=== PATIENT | male | born 1960 | race Caucasian/White ===

== ENCOUNTER → 2018-09-21 | Outpatient (CLI) | payer BC ==
[~2018-09-21] VITALS: Ht 180.3 cm; Wt 81.6 kg
[2018-09-21 12:16] LABS: Basophils # (auto) 0.1 uL; Basophils % (auto) 1.6 % (0.0-2.0); Eosinophils # (auto) 0.2 uL; Eosinophils % (auto) 3.9 % (0.0-7.0); Hematocrit 45.3 % (41.0-53.0); Hemoglobin 15.6 g/dL (13.5-17.5); Lymphocytes # (auto) 1.3 uL; Mean Corpuscular Hemoglobin 29.3 pg (28.0-32.0); Mean Corpuscular Hgb Conc. 34.4 g/dL (32.0-36.0); Mean Corpuscular Volume 85.2 fL (80.0-100.0); Monocytes # (auto) 0.5 uL; Monocytes % (auto) 8.2 % (0.0-12.0); Neutrophils # (auto) 3.5 uL; Neutrophils % (auto) 63.3 % (37.0-80.0); Nucleated Red Blood Cells % 0.2 %; Platelet Count (auto) 195 10^3/uL (140-450); Red Blood Cells 5.32 10^6/uL (4.5-5.90); Red Cell Distribution Width 13.2 % (11.8-14.3); Urine Blood Negative /uL (Negative); Urine Specific Gravity 1.026 (1.001-1.035); White Blood Cell 5.6 10^3/uL (4.4-10.8)
[2018-09-21 12:26] LABS: Albumin 3.7 g/dL (3.4-5.0); Calcium 8.5 mg/dL (8.5-10.1); Potassium 3.9 mmol/L (3.5-5.1)
[2018-09-21 12:32] LABS: BUN/Creatinine Ratio 16.7; Bilirubin, Total 0.7 mg/dL (0.2-1.0); Total Protein 7.2 g/dL (6.4-8.2)
[2018-09-21 12:34] LABS: Free T4 (Free Thyroxine) 1.34 ng/dL (0.89-1.76)
[2018-09-21 12:35] LABS: Prostate Specific Antigen 1.14 ng/mL (0.0-4.0)
== END | disposition home or self-care (01) ==
LOC: Rad HDHVI 08:07
PROVIDERS: ATTEND Internal Medicine Cardiovascular Disease
DX: I20.9 Angina pectoris, unspecified (principal); E03.9 Hypothyroidism, unspecified; E11.9 Type 2 diabetes mellitus without complications; E55.9 Vitamin D deficiency, unspecified; E29.1 Testicular hypofunction; N39.0 Urinary tract infection, site not specified; C61 Malignant neoplasm of prostate
CPT/HCPCS: 36415; 78452; 80053; 80061; 81003; 82306; 82607; 83036; 84153; 84403; 84439; 84443; 85025; 93017; 93306; 96374; A9500

== ENCOUNTER → 2018-11-01 | Outpatient (CLI) | payer BC ==
[~2018-11-01] MED LIST: HEPARIN IN NS 1000Units/500mL 1,500 ML ONE; LIDOCAINE 2%HCL (LOCAL ANESTH.) INJ 20ML MDV ONE
[2018-11-01 12:57] VITALS: BP 113/71
[2018-11-01 13:14] VITALS: BP 117/77
--- NOTE | 2018-11-01 13:14 | NUR ---
CHF PRE-OP FOR LEFT HEART CATH FOR 11/03/18. Pre-Op Discharge Summary: See e-MAR for any medications given for this visit. Pre-op orders received and carried out per MD of EKG, LABS and chest xrays. Patient given a copy of EKG with instructions to go to [facility] out patient for further follow up care.
[2018-11-01 15:49] LABS: Basophils # (auto) 0.1 uL; Basophils % (auto) 1.1 % (0.0-2.0); Eosinophils # (auto) 0.2 uL; Eosinophils % (auto) 2.5 % (0.0-7.0); Hematocrit 45.4 % (41.0-53.0); Hemoglobin 15.4 g/dL (13.5-17.5); Lymphocytes # (auto) 1.8 uL; Lymphocytes % (auto) 27.3 % (10.0-50.0); Mean Corpuscular Hgb Conc. 33.8 g/dL (32.0-36.0); Mean Corpuscular Volume 85.7 fL (80.0-100.0); Monocytes # (auto) 0.7 uL; Monocytes % (auto) 10.6 % (0.0-12.0); Neutrophils # (auto) 3.8 uL; Neutrophils % (auto) 58.5 % (37.0-80.0); Nucleated Red Blood Cells % 0.6 %; Platelet Count (auto) 218 10^3/uL (140-450); Red Blood Cells 5.29 10^6/uL (4.5-5.90); Red Cell Distribution Width 13.5 % (11.8-14.3); White Blood Cell 6.5 10^3/uL (4.4-10.8)
[2018-11-01 16:02] LABS: INR 0.95 (0.9-1.15); Partial Thromboplastin Time 27.1 sec (23.78-33.04); Prothrombin Time 10.2 sec (9.27-12.13)
[2018-11-01 16:03] LABS: Calcium 8.5 mg/dL (8.5-10.1); Potassium 3.6 mmol/L (3.5-5.1)
[2018-11-01 16:05] LABS: BUN/Creatinine Ratio 18.5
== END | disposition home or self-care (01) ==
LOC: Rad HDHVI 12:31
PROVIDERS: ATTEND Internal Medicine Cardiovascular Disease
DX: Z01.818 Encounter for other preprocedural examination (principal); D64.9 Anemia, unspecified; R79.1 Abnormal coagulation profile; I10 Essential (primary) hypertension; I20.9 Angina pectoris, unspecified
CPT/HCPCS: 36415; 71046; 80048; 85025; 85610; 85730; 93005; G0463

== ENCOUNTER 2018-11-03 07:35 | Day surgery (SDC) | payer BC ==
[~2018-11-03] VITALS: Ht 180.3 cm; Wt 83.9 kg
[2018-11-03] MEDS ORDERED: LIDOCAINE 2%HCL (LOCAL ANESTH.) INJ 20ML MDV ONE (09:16)
[2018-11-03] MEDS ORDERED: IOHEXOL 350 MG/ML 100ML IJ ONE (09:29)
[2018-11-03] MEDS ORDERED: ANGIOMAX 250 MG VIAL IV ONE (09:38)
[2018-11-03] MEDS ORDERED: fentaNYL CITRATE 100 MCG/2 ML VL ONE (09:39)
[2018-11-03] MEDS ORDERED: MIDAZOLAM HCL 1MG/1ML-2 ML VIAL ONE (09:39)
[2018-11-03] MEDS ORDERED: SODIUM CHL 0.9% 0 ML ONE (09:39)
== END 2018-11-03 12:00 | disposition home or self-care (01) ==
LOC: CATH 07:35
PROVIDERS: ATTEND Internal Medicine Cardiovascular Disease
DX: R94.39 Abnormal result of other cardiovascular function study (principal); R00.1 Bradycardia, unspecified; E07.9 Disorder of thyroid, unspecified; I10 Essential (primary) hypertension; Z98.890 Other specified postprocedural states; Z79.82 Long term (current) use of aspirin; Z79.899 Other long term (current) drug therapy
CPT/HCPCS: 93458; A6257; C1760; C1894; J1644; J2250; J3010; J7030; Q9967; 99152

== ENCOUNTER → 2019-04-10 | Outpatient (CLI) | payer BC ==
[~2019-04-10] MED LIST changes: +AMLO5TAB15 PO; +ASPI-404 PO; -HEPARIN IN NS 1000Units/500mL 1,500 ML ONE; +HYDR-4296 PO; +HYDR25TA4 PO; +LEVO100T8 PO; -LIDOCAINE 2%HCL (LOCAL ANESTH.) INJ 20ML MDV ONE; +LOSA25TA38 PO; +OME20T PO
[2019-04-10 09:34] VITALS: BP 132/87
[2019-04-10 09:55] VITALS: BP 114/81
--- NOTE | 2019-04-10 09:55 | NUR ---
Pre-Op Discharge Summary: See e-MAR for any medications given for this visit. Pre-op orders received and carried out per MD of EKG, LABS and prescription for chest xrays. Patient given a copy of EKG with instructions to go to [facility] out patient for further follow up care.
[2019-04-10 11:34] LABS: Basophils # (auto) 0.1 uL; Basophils % (auto) 1.2 % (0.0-2.0); Eosinophils # (auto) 0.1 uL; Eosinophils % (auto) 2.5 % (0.0-7.0); Hematocrit 43.9 % (41.0-53.0); Hemoglobin 15.1 g/dL (13.5-17.5); Lymphocytes # (auto) 1.4 uL; Lymphocytes % (auto) 24.8 % (10.0-50.0); Mean Corpuscular Hgb Conc. 34.3 g/dL (32.0-36.0); Mean Corpuscular Volume 84.6 fL (80.0-100.0); Monocytes # (auto) 0.5 uL; Monocytes % (auto) 9.5 % (0.0-12.0); Neutrophils # (auto) 3.5 uL; Nucleated Red Blood Cells % 0.1 %; Platelet Count (auto) 185 10^3/uL (140-450); Red Cell Distribution Width 13.1 % (11.8-14.3); White Blood Cell 5.6 10^3/uL (4.4-10.8)
[2019-04-10 11:41] LABS: Potassium 3.7 mmol/L (3.5-5.1)
[2019-04-10 11:50] LABS: INR 1.01 (0.9-1.15); Partial Thromboplastin Time 27.3 sec (23.64-32.05)
[2019-04-10 11:51] LABS: BUN/Creatinine Ratio 12.8; Calcium 8.6 mg/dL (8.5-10.1)
== END | disposition home or self-care (01) ==
LOC: Rad HDHVI 09:11
PROVIDERS: ATTEND Internal Medicine Cardiovascular Disease
DX: Z01.818 Encounter for other preprocedural examination (principal); D64.9 Anemia, unspecified; R79.1 Abnormal coagulation profile; I49.5 Sick sinus syndrome; I10 Essential (primary) hypertension
CPT/HCPCS: 36415; 80048; 85025; 85610; 85730; 93005; G0463

== ENCOUNTER 2019-04-13 07:01 | Inpatient (IN) | payer BC ==
[~2019-04-13] VITALS: Ht 180.3 cm; Wt 86.3 kg
[~2019-04-13 07:01] MED LIST changes: -HYDR25TA4 PO
[2019-04-13] MEDS ORDERED: VANCOMYCIN HCL 1000 MG VL ONE (08:12)
[2019-04-13] MEDS ORDERED: fentaNYL CITRATE 100 MCG/2 ML VL ONE (08:12)
[2019-04-13] MEDS ORDERED: MIDAZOLAM HCL 1MG/1ML-2 ML VIAL ONE (08:13)
[2019-04-13] MEDS ORDERED: ceFAZolin 1GM/50ML 50 ML IV ONE (08:13)
[2019-04-13] MEDS ORDERED: VANCOMYCIN 1GM/250ML 250 ML IV ONE (08:13)
[2019-04-13] MEDS ORDERED: IOHEXOL 350 MG/ML 100ML IJ ONE (08:13)
[2019-04-13] MEDS ORDERED: LIDOCAINE 2%HCL (LOCAL ANESTH.) INJ 20ML MDV ONE (08:13)
[2019-04-13] MEDS ORDERED: ACETAMINOPHEN 325 MG TAB PO PRN (11:00)
[2019-04-13] MEDS ORDERED: NITROGLYCERIN 0.4 MG SL TAB SL PRN (11:00)
[2019-04-13] MEDS ORDERED: MORPHINE SULF INJ 2 MG/ML SYRINGE 1ML IV PRN (11:00)
[2019-04-13] MEDS ORDERED: HYDROcodone-ACET 5/325MG TAB PO PRN (11:00)
--- NOTE | 2019-04-13 11:33 | NUR ---
Telemetry admit from [facility] CLAUDIABAMBI GUTIERREZ admitted to Telemetry unit after SBAR received. Patient oriented to Rosa Peng, RN primary RN, unit, room, bed, and unit policies regarding patient care and visiting hours. Patient now on continuous telemetry monitoring, tele box #[id number] and telemetry reading on arrival to unit is SR 64. Patient weighed by bed scale and encouraged to call if they need something. All questions and concerns addressed, patient verbalized understanding.
[2019-04-13 13:00] VITALS: BP 126/91
[2019-04-13] MEDS ORDERED: HYDR25TA4 PO (15:02)
[2019-04-13 16:34] VITALS: BP 132/90
--- NOTE | 2019-04-13 19:37 | NUR ---
OPENING NOTES RECEIVED REPORT FROM DAY SHIFT NURSE, SCOTT. PT IS AWAKE, ALERT AND ORIENTATED X 4 WITH NO S/S OF DISTRESS, NOR NAUSEA, VOMITING. NO CHEST PAIN. LEFT UPPER CHEST INCISION DRESSING IS CLEAN, DRY, AND INTACT. FAMILY IS AT BEDSIDE. BED BRAKES LOCKED AND BED IS IN LOWEST POSITION. SIDE RAILS UP X2 AND CALL LIGHT IS WITH IN REACH. HOB IS 30 DEGREES. WILL MONITOR Q 1HR.
[2019-04-13] MEDS: VANCOMYCIN 1GM/250ML 250 ML IV SCH (21:43)
[2019-04-13 22:00] VITALS: BP 147/86
--- NOTE | 2019-04-14 01:20 | NUR ---
Received patient from Petr RAINEY. Patient is resting in bed, no S/S of distress, SOB, or pain. Sling is in place to left arm. Will continue to monitor.
--- NOTE | 2019-04-14 01:29 | NUR ---
CLOSING NOTES ENDORSED CARE TO [facility].
[2019-04-14 05:00] VITALS: BP 137/88
[2019-04-14] MEDS ORDERED: LEVOTHYROXINE SODIUM 100 MCG TAB PO SCH (07:00)
[2019-04-14 08:00] VITALS: BP 127/83
[2019-04-14] MEDS: VANCOMYCIN 1GM/250ML 250 ML IV SCH (09:52)
[2019-04-14] MEDS ORDERED: amLODIPine BESYLATE 5 MG TAB PO SCH (10:00)
[2019-04-14] MEDS ORDERED: hydrALAZINE HCL 25 MG TAB PO SCH (10:00)
[2019-04-14] MEDS ORDERED: PANTOPRAZOLE 40 MG TAB PO SCH (10:00)
[2019-04-14] MEDS ORDERED: LOSARTAN POTASSIUM 25 MG TAB PO SCH (10:00)
[2019-04-14 13:58] VITALS: BP 129/83
[2019-04-14 15:17] VITALS: BP 129/83
--- NOTE | 2019-04-14 16:40 | NUR ---
DISCHARGE INSTRUCTIONS PROVIDED TO PT. PT VERBALIZED UNDERSTANDING FOR FOLLOW UP APPOINTMENT WITH [facility] AND CONTINUATION OF HOME MEDICATIONS. EDUCATIONAL MATERIAL PROVIDED, QUESTIONS AND CONCERNS ADDRESSED. IV CATHETER DC'D CATHETER INTACT NO PHLEBITIS, TELE BOX REMOVED AND RETURNED TO MONITOR. PT SAFELY ESCORTED OUT OF UNIT.
== END 2019-04-14 16:35 | disposition home or self-care (01) | DRG 244 ==
LOC: CATH 07:01 → TELE-WESTW 11:35
PROVIDERS: ADMIT Internal Medicine Cardiovascular Disease; ATTEND Internal Medicine Cardiovascular Disease
PROC: 0JH606Z Insertion of Pacemaker, Dual Chamber into Chest Subcutaneous Tissue and Fascia, Open Approach (ICD-10-PCS; principal; 2019-04-13)
PROC: 02HK3JZ Insertion of Pacemaker Lead into Right Ventricle, Percutaneous Approach (ICD-10-PCS; 2019-04-13)
PROC: 02H63JZ Insertion of Pacemaker Lead into Right Atrium, Percutaneous Approach (ICD-10-PCS; 2019-04-13)
DX: I49.5 Sick sinus syndrome (principal); I25.10 Atherosclerotic heart disease of native coronary artery without angina pectoris; I10 Essential (primary) hypertension; E78.5 Hyperlipidemia, unspecified; N40.0 Benign prostatic hyperplasia without lower urinary tract symptoms; R55 Syncope and collapse
CPT/HCPCS: 71045; 93005; 99152; 99153; C1785; G0378; J0690; J2250

== ENCOUNTER → 2020-05-06 | Outpatient (CLI) | payer BC ==
[~2020-05-06] MED LIST changes: -ASPI-404 PO; +ASPI-543 PO; -HYDR-4296 PO; +HYDR25TA4 PO; -LOSA25TA38 PO
[2020-05-06 12:11] LABS: Urine Blood Negative /uL (Negative); Urine Specific Gravity 1.023 (1.001-1.035)
[2020-05-06 12:12] LABS: Basophils # (auto) 0.1 10 ^3/uL (0-0.2); Basophils % (auto) 1.2 % (0.0-2.0); Eosinophils # (auto) 0.1 10 ^3/uL (0-0.8); Eosinophils % (auto) 2.3 % (0.0-7.0); Hematocrit 42.9 % (41.0-53.0); Hemoglobin 14.9 g/dL (13.5-17.5); Lymphocytes # (auto) 1.3 10 ^3/uL (0.4-5.4); Lymphocytes % (auto) 24.6 % (10.0-50.0); Mean Corpuscular Hemoglobin 29.8 pg (28.0-32.0); Mean Corpuscular Hgb Conc. 34.7 g/dL (32.0-36.0); Mean Corpuscular Volume 85.8 fL (80.0-100.0); Monocytes # (auto) 0.5 10 ^3/uL (0-1.3); Monocytes % (auto) 9.9 % (0.0-12.0); Neutrophils # (auto) 3.4 10 ^3/uL (1.6-8.6); Platelet Count (auto) 190 10^3/uL (140-450); Red Blood Cells 5.01 10^6/uL (4.5-5.90); Red Cell Distribution Width 13.5 % (11.8-14.3); White Blood Cell 5.5 10^3/uL (4.4-10.8)
[2020-05-06 12:30] LABS: Free T4 (Free Thyroxine) 1.21 ng/dL (0.89-1.76)
[2020-05-06 12:31] LABS: Prostate Specific Antigen 1.15 ng/mL (0.0-4.0)
[2020-05-06 12:45] LABS: Albumin 3.8 g/dL (3.4-5.0); BUN/Creatinine Ratio 15.4; Bilirubin, Total 0.7 mg/dL (0.2-1.0); Calcium 8.9 mg/dL (8.5-10.1); Total Protein 7.1 g/dL (6.4-8.2)
== END | disposition home or self-care (01) ==
LOC: Rad HDHVI 08:14
PROVIDERS: ATTEND Internal Medicine Cardiovascular Disease
DX: C61 Malignant neoplasm of prostate (principal); D64.9 Anemia, unspecified; E11.9 Type 2 diabetes mellitus without complications; E55.9 Vitamin D deficiency, unspecified; I10 Essential (primary) hypertension; R53.1 Weakness; R30.0 Dysuria; D51.3 Other dietary vitamin B12 deficiency anemia; R00.2 Palpitations
CPT/HCPCS: 36415; 80053; 80061; 81003; 82306; 82607; 83036; 84153; 84403; 84439; 84443; 85025; 93306

== ENCOUNTER → 2023-06-03 | Outpatient (CLI) | payer BC ==
[~2023-06-03] MED LIST changes: +AMLO1TAB22 PO; -AMLO5TAB15 PO
== END | disposition home or self-care (01) ==
LOC: Rad HDHVI 15:35
PROVIDERS: ATTEND Internal Medicine Cardiovascular Disease
DX: I07.1 Rheumatic tricuspid insufficiency (principal); R06.02 Shortness of breath; E78.5 Hyperlipidemia, unspecified
CPT/HCPCS: 93306

== ENCOUNTER → 2023-06-22 | Outpatient (CLI) | payer BC ==
[~2023-06-22] VITALS: Ht 180.3 cm; Wt 86.2 kg
== END | disposition home or self-care (01) ==
LOC: Rad HDHVI 14:00
PROVIDERS: ATTEND Internal Medicine Cardiovascular Disease
DX: I10 Essential (primary) hypertension (principal); R06.02 Shortness of breath; R00.2 Palpitations; R07.89 Other chest pain; E78.5 Hyperlipidemia, unspecified; I49.5 Sick sinus syndrome; Z95.0 Presence of cardiac pacemaker; Z82.49 Family history of ischemic heart disease and other diseases of the circulatory system
CPT/HCPCS: 78452; 93017; 96374; A9500